=== PATIENT | male | born 1980 | race Hispanic/Latino ===

== ENCOUNTER → 2023-01-21 | Outpatient (CLI) | payer BC | END | disposition home or self-care (01) | LOC: SHCH 14:48 | PROVIDERS: ATTEND Internal Medicine | DX: I34.0 Nonrheumatic mitral (valve) insufficiency (principal); I25.10 Atherosclerotic heart disease of native coronary artery without angina pectoris; I10 Essential (primary) hypertension; E78.5 Hyperlipidemia, unspecified; Z98.61 Coronary angioplasty status | CPT/HCPCS: 93306 ==